=== PATIENT | male | born 1935 | race Caucasian/White ===

== ENCOUNTER 2016-10-30 14:46 | Outpatient (CLI) | payer MEDICARE, BC, OTHER | END 2016-10-30 14:47 | disposition home or self-care (01) | LOC: SC 14:46 | PROVIDERS: ATTEND Nurse Practitioner Family | DX: G47.33 Obstructive sleep apnea (adult) (pediatric) (principal) | CPT/HCPCS: 99213; G0463; 99212 ==

== ENCOUNTER 2017-04-24 08:46 | Outpatient (CLI) | payer MEDICARE, BC, OTHER | END 2017-04-24 08:47 | disposition home or self-care (01) | LOC: LAB.N 08:46 | PROVIDERS: ATTEND Urology | DX: Z12.5 Encounter for screening for malignant neoplasm of prostate (principal); C61 Malignant neoplasm of prostate | CPT/HCPCS: 36415; 84153 ==

== ENCOUNTER 2017-09-20 09:41 | Outpatient (CLI) | payer MEDICARE, BC, OTHER ==
[~2017-09-20 09:41] MED LIST: GADOBUTROL 10 MMOL/10 ML VIAL ONE
[2017-09-20] MEDS: GADOBUTROL 10 MMOL/10 ML VIAL IVP ONE (11:02)
--- NOTE | 2017-09-21 09:44 | MRI Report ---
Procedure Date: 09/20/2017 Accession Number: [id number] / [id number] Procedure: MRI - Brain W/WO CPT Code: FULL RESULT: EXAM: MRI BRAIN AND INTERNAL AUDITORY CANAL (IAC),WITHOUT AND WITH CONTRAST. EXAM DATE: 09/20/2017 09:45 AM. CLINICAL HISTORY: CEREBELLOPONTINE ANGLE TUMOR. COMPARISON: CTA head and neck 03/13/2017. TECHNIQUE: Multiplanar, multisequence T1-weighted and fluid-sensitive MRI sequences of the brain and IACs were performed. Other: None. IV Contrast: 10 cc GADAVIST. FINDINGS: Brain Volume: Normal for age. Parenchyma/Dura: No acute hemorrhage, mass, or acute infarct.Mild bilateral areas of T2/FLAIR signal hyperintensity seen. No abnormal enhancement. Internal Auditory Canals (IACs): Adjacent to the right hypoglossal canal is an avidly enhancing mass lesion measuring 5 x 7 x 6 mm (cc by TRV by AP). The remainder of the right cerebellopontine angles and internal auditory canals appear clear. The left cerebellopontine angle and internal artery canals appear clear. The cisternal course of the seventh and eighth cranial nerves appear normal. The inner ear structure are symmetric and unremarkable. Ventricles/Cisterns: No hydrocephalus. Except as described above cisterns are patent. Orbits: Changes of bilateral lens replacement. Sella Turcica: The pituitary gland, cavernous sinuses, suprasellar cistern and optic chiasm are unremarkable. Vasculature: Normal signal flow void is seen in the major arterial structures at the skull base. The dural sinuses are patent and enhance normally. Sinuses: No acute sinus disease. Bones: No focal pathologic appearing marrow signal changes. Other: None. IMPRESSION: 1. Within the right lateral medullary cistern adjacent to the right hypoglossal canal is an avidly enhancing mass lesion measuring 5 x 7 x 6 mm (cc by TRV by AP). Finding is suspicious for potential schwannoma. Possibility of meningiomas considered less likely but not entirely excluded. Lymphoma or metastatic disease is considered unlikely. 2. No acute infarct, intracranial hemorrhage, additional mass, hydrocephalus, midline shift, or additional areas of abnormal postcontrast enhancement. 3. Mild white matter changes that may represent sequela of chronic small vessel ischemic disease. RADIA
== END 2017-09-20 09:42 | disposition home or self-care (01) ==
LOC: DI 09:41
PROVIDERS: ATTEND Otolaryngology Otology & Neurotology
DX: G93.9 Disorder of brain, unspecified (principal)
CPT/HCPCS: 70553; A9585

== ENCOUNTER 2017-11-14 13:13 | Outpatient (CLI) | payer MEDICARE, BC, OTHER | END 2017-11-14 13:14 | disposition home or self-care (01) | LOC: SC 13:13 | PROVIDERS: ATTEND Nurse Practitioner Family | DX: G47.33 Obstructive sleep apnea (adult) (pediatric) (principal) | CPT/HCPCS: 99214; G0463; 99212 ==

== ENCOUNTER 2018-04-15 15:18 | Outpatient (CLI) | payer MEDICARE, BC, OTHER | END 2018-04-15 15:19 | disposition home or self-care (01) | LOC: SC 15:18 | PROVIDERS: ATTEND Nurse Practitioner Family | DX: G47.33 Obstructive sleep apnea (adult) (pediatric) (principal) | CPT/HCPCS: 99213; G0463; 99212 ==

== ENCOUNTER 2019-04-17 10:28 | Outpatient (CLI) | payer MEDICARE, BC, OTHER ==
[2019-04-17 12:10] VITALS: BP 120/60
--- NOTE | 2019-04-17 12:10 | SLEEP CARE CONSULTATION ---
Information from patient questionnaire entered by Mounika Hilton. I have reviewed and concur with the information entered by Mounika Hilton. This document represents the service I personally performed and the decisions made by me, Zoraida Mcelroy, RN, MSN, TRUCKER. History of Present Illness Previous diagnosis: Very Severe, Obstructive Sleep Apnea-Hypopnea Syndrome AHI: 74.0 Reason for follow up: annual (last seen 2019) Equipment type: CPAP Equipment obtained from: [place] Mask style: Nasal pillows Backup mask available: Yes Last cushion change: 3 weeks ago CPAP Compliance Data - Data Reviewed with Patient Average duration of nightly device use: 7.95 Compliance rate %: 98.9 (180 days) Current pressure setting (cmH2O): 11-15 Humidity settin Heated hose settin Average residual AHI: 2.4 Average large leak: 2 min 51 sec Subjective Missed days of use due to: reports: other (power outage ) Patient concerns: denies: aerophagia, mask discomfort, air blowing in eyes, mask leak noise, condensation in mask/hose, nasal congestion, dry mouth, nose, thr oat, epistaxis Observed to snore while using device: No Current pressure setting perceived as: comfortable On therapy, patient: reports: sleeping better, awakening more refreshed, being more awake and alert during the day, more rested overall. denies: drowsiness while driving Initial [place] Sleepiness Scale score: 5 Current [place] Sleepiness Scale score: 3 Allergies and Home Medications Known drug allergies: No Home medication list reviewed: Yes (no changes since last visit) Allergy and home medication list: Medication Name (generic/name brand) Strength & Dosage Micardis-HCTZ 40-12.5mg tab one daily Lovastatin 40mg tab one daily at bedtime Alfuzosin 10mg tab one daily Metformin 500mg tab one twice daily Multivitamin Tab one daily Fish Oil 1200mg tab one daily Aspirin 81mg tab one daily Review of Systems Review of systems same as previous: Yes Physical Exam Blood Pressure: 120/60 Cuff size: long Heart Rate: 76 O2 Saturation: 96 Height: 5 ft 11 in ( ) Weight: 220 lb 12.8 oz Body Mass Index: 30.8 BMI Classification: Obesity Class 1 Impression and Plan 1. Obstructive Sleep Apnea-Hypopnea Syndrome, very severe , with good treatment compliance and good apnea control. On CPAP therapy, the patient has better sleep quality and is more rested overall. If occasional oral venting increases, patient to call for pressure adjustment. Currently he is comfortable with pressure and no oral dryness. He uses a chinstrap and oral venting only noted occasionally by spouse in supine position so could be during REM sleep. Patient BMI 30 and advised of health risks of obesity and to lose weight. I also discussed how weight affects apnea risks and CPAP pressure requirements. Patient's apnea severity and rationale for treatment to reduce apnea, improve sleep quality and reduce cardiovascular and cerebrovascular events was reviewed. I also reviewed the benefit of consistent device use of CPAP for hypertension, . * Continue CPAP pressure at11-15 cmH2O * Notify me if snoring with mask or feeling that the pressure is too much or too little * Attempt to lose weight * Call this office if any problems using CPAP * Return for follow up in 1 year , or sooner if concerns arise. Time Spent with Patient (minutes): 15 I spent 100% of this visit face to face with the patient with greater than 50% of this was spent time counseling the patient and coordination of care.
== END 2019-04-17 10:29 | disposition home or self-care (01) ==
LOC: SC 10:28
PROVIDERS: ATTEND Nurse Practitioner Family
DX: G47.33 Obstructive sleep apnea (adult) (pediatric) (principal); E66.9 Obesity, unspecified; Z68.30 Body mass index [BMI] 30.0-30.9, adult
CPT/HCPCS: 99213; G0463; 99212

== ENCOUNTER 2020-04-15 12:34 | Outpatient (CLI) | payer MEDICARE, BC, OTHER ==
--- NOTE | 2020-04-15 11:25 | SLEEP CARE CONSULTATION ---
Information from patient questionnaire entered by Mounika Hilton. I have reviewed and concur with the information entered by Mounika Hilton. This document represents the service I personally performed and the decisions made by me, Zoraida Mcelroy, RN, MSN, TWIST TESTER. History of Present Illness Service Date and Time: 04/15/2020 1100 Previous diagnosis: Very Severe, Obstructive Sleep Apnea-Hypopnea Syndrome AHI: 74.0 (in 2006) Reason for follow up: annual (last seen 03/2019) Equipment type: CPAP Equipment obtained from: [place] Mask style: Nasal pillows (with chinstrap) Backup mask available: Yes (old) Last cushion change: a few days Prior sleep studies: Yes Year and Where: 2006 - [facility]; 2000 - [facility] CPAP Compliance Data - Data Reviewed with Patient Average duration of nightly device use: 8 hr 4 min Compliance rate %: 98.9 (180 days) Current pressure setting (cmH2O): 11-15 Humidity settin Heated hose settin Average residual AHI: 2.3 Average large leak: 1 min 19 sec Subjective Patient concerns: reports: other (insomnia a few times due to pandemic). denies: aerophagia (rationale why to report discussed ), mask discomfort, air blowing in eyes, mask leak noise, condensation in mask/hose, nasal congestion, dry mouth, nose, throat, epistaxis Observed to snore while using device: No (however his spouse notices oral noises when supine ) Current pressure setting perceived as: comfortable On therapy, patient: reports: sleeping better (insomnia a few times re pandemic), awakening more refreshed, being more awake and alert during the day, more rested overall. denies: drowsiness while driving Initial [place] Sleepiness Scale score: 5 (in 2013) Current [place] Sleepiness Scale score: 2 Allergies and Home Medications Known drug allergies: No Home medication list reviewed: Yes (stopped Metformin) Review of Systems Review of systems same as previous: Yes Physical Exam Height: 5 ft 11 in ( ) Weight: 202 lb (same) Body Mass Index: 28.1 BMI Classification: Overweight Impression and Plan 1. Obstructive Sleep Apnea-Hypopnea Syndrome, very severe, with excellence treatment compliance and good apnea control. On CPAP therapy, the patient has better sleep quality and is more rested overall. His auto CPAP pressure range will be increased to 13-15 cmH20 to reduce oral noise observed by spouse while he is sleeping supine. He is advised to contact this office if the pressure change is uncomfortable or is it does not resolve oral noises supine. Since patient has more severe apnea in supine position, patient advised to avoid supine sleep with pillow positioning if unable to use CPAP while ill or if without electricity to reduce apnea risk. Patient's apnea severity and rationale for treatment to reduce apnea, improve sleep quality and reduce cardiovascular and cerebrovascular events was reviewed. I also reviewed the benefit of consistent device use of CPAP for hypertension. 2. Insomnia, intermittent, related to pandemic. Patient advised to leave bedroom and write out concerns as a release and then read something relaxing until sleepy enough to go back to bed. Patient advised to follow up with PCP if insomnia becomes worse with rationale discussed. * * Changeauto CPAP pressure to 13-15 cmH2O * Notify me if snoring with mask or feeling that the pressure is too much or too little * Attempt to lose some weight * Avoid CPAP sleep if unable to use PAP * Call this office if any problems using CPAP * Return for follow up in 1 year , or sooner if concerns arise Counseling Topics: Sleeping position Visit Type: Telehealth Phone ([employer]) Patient Location: Home Other Participants: Spouse/Significant Other Location of Provider: Home Patient agrees and consents to this telehealth visit type: Yes Patient agrees to have their insurance billed: Yes Time Spent with Patient (minutes): 19 and 5 minutes documentation after visit. Provider Statement: I spent 100% of the Telehealth Phone Call with the patient with greater than 50% spent counseling the patient and coordination of care.
== END 2020-04-15 12:35 | disposition home or self-care (01) ==
LOC: SC 12:34
PROVIDERS: ATTEND Nurse Practitioner Family
DX: G47.33 Obstructive sleep apnea (adult) (pediatric) (principal); E66.3 Overweight; Z68.28 Body mass index [BMI] 28.0-28.9, adult; G47.00 Insomnia, unspecified

== ENCOUNTER 2021-04-05 11:15 | Outpatient (CLI) | payer MEDICARE, BC, OTHER ==
[2021-04-05 12:11] VITALS: BP 126/85
--- NOTE | 2021-04-05 12:11 | SLEEP CARE CONSULTATION ---
Information from patient questionnaire entered by Osmin Bolivar MA. I have reviewed and concur with the information entered by Osmin Bolivar MA. This document represents the service I personally performed and the decisions made by , Eduarda Tomlinson ARNP. History of Present Illness Service Date and Time: 04/05/2021 1115 Previous diagnosis: Very Severe, Obstructive Sleep Apnea-Hypopnea Syndrome AHI: 74.0 (in 2006) Reason for follow up: annual Equipment type: CPAP Equipment obtained from: [employer] (getting supplies as needed) Mask style: Nasal pillows (with chinstrap) Backup mask available: Yes (old mask) Last cushion change: 10 days ago Prior sleep studies: Yes Year and Where: 2006 - [facility]; 2000 - [facility] additional information: JULIO NGO was diagnosed to have very severe, AHI 74.0, obstructive sleep apnea-hypopnea syndrome and returned today with spouse for CPAP therapy annual follow-up. Sleep Study - Results Prior sleep studies: Yes Year and Where: 2006 - [facility]; 2000 - [facility] CPAP Compliance Data - Data Reviewed with Patient Average duration of nightly device use: 8 HOURS 3 MINUTES Compliance rate %: 99.4 Current pressure setting (cmH2O): 13-15 Humidity settin Heated hose settin Average residual AHI: 3.6 Average large leak: 8 MINUTES 4 SECONDS Subjective Patient concerns: reports: other (headgear gets loose before ready to change). denies: aerophagia, mask discomfort, air blowing in eyes, mask leak noise, condensation in mask/hose, nasal congestion, dry mouth, nose, throat, epistaxis Observed to snore while using device: Yes (snores some if on his back) Current pressure setting perceived as: comfortable On therapy, patient: reports: sleeping better, awakening more refreshed, being more awake and alert during the day, more rested overall. denies: drowsiness while driving Initial [place] Sleepiness Scale score: 5 (in 2012) Current [place] Sleepiness Scale score: 2 (2021) Allergies and Home Medications Known drug allergies: No Drug allergies reviewed: Yes Home medication list reviewed: Yes (stopped Metformin ) Review of Systems Review of systems same as previous: Yes (no changes) Physical Exam Vital signs obtained and entered by: Rolan BOLIVAR CMA AASANTY Blood Pressure: 126/85 (RIGHT) Cuff size: wrist Heart Rate: 62 O2 Saturation: 94 (WITH 2 MASKS) Height: 5 ft 11 in ( ) Weight: 220 lb (WITH CLOTHES) Body Mass Index: 30.7 BMI Classification: Obese Impression and Plan 1. Obstructive Sleep Apnea-Hypopnea Syndrome, very severe, with excellent treatment compliance and good apnea control. On CPAP therapy, the patient has better sleep quality and is more rested overall. Patient's states she hears some sounds especially when he is on his back, possibly snoring. He uses a nasal pillows mask with a chinstrap. No changes needed at this time. Patient states that he has had care will become looser before he is able to get a new one. Otherwise he has no other complaints. He has significant improvement of his sleep apnea. Patient has already registered their device for the recall. Patient denies any black particles seen in machine or hoses, any unusual odors coming from device. Patient has not experienced any physical symptoms such as upper airway irritation, headache, skin or eye irritation, asthma, nausea/vomiting, difficulty breathing or chest pain. If patient is not able to sleep due to waking up choking, gasping for air or other respiratory distress that they may decide to continue using it until it is either replaced or repaired. Patient is continue to use his device and monitoring for any changes. Patient voiced understanding and agreement with plan. Patient's apnea severity and rationale for treatment to reduce apnea, improve sleep quality and reduce cardiovascular and cerebrovascular events was reviewed. I also reviewed the benefit of consistent device use of CPAP for hypertension. Patient was encouraged to lose weight for their overall health and to reduce apneas. Patient states he has not been doing well over the holidays with losing weight but will try now. * Continue auto CPAP pressure at 13-15 cmH2O * Notify me if snoring with mask or feeling that the pressure is too much or too little * Attempt to lose weight * Call this office if any problems using CPAP * Return for follow up in 1 year, or sooner if concerns arise Counseling Topics: Spare mask, Weight loss health impact Visit Type: In Office Other Participants: Spouse/Significant Other Time Spent with Patient (minutes): 20 Provider Statement: I spent 100% of the Face to Face Visit with the patient with greater than 50% spent counseling the patient and coordination of care.
== END 2021-04-05 11:16 | disposition home or self-care (01) ==
LOC: SC 11:15
PROVIDERS: ATTEND Nurse Practitioner Family
DX: G47.33 Obstructive sleep apnea (adult) (pediatric) (principal); E66.9 Obesity, unspecified; Z68.30 Body mass index [BMI] 30.0-30.9, adult
CPT/HCPCS: 99213; G0463; 99212

== ENCOUNTER 2022-05-03 14:59 | Outpatient (CLI) | payer MEDICARE, BC, OTHER ==
[2022-05-03 15:47] VITALS: BP 118/64
--- NOTE | 2022-05-03 15:47 | SLEEP CARE CONSULTATION ---
Information from patient questionnaire entered by Justina Vergara. I have reviewed and concur with the information entered by Justina Vergara. This document represents the service I personally performed and the decisions made by me, Eduarda Tomlinson ARNP. History of Present Illness Service Date and Time: 05/03/2022 1459 Previous diagnosis: Very Severe, Obstructive Sleep Apnea-Hypopnea Syndrome AHI: 74.0 (in 2006) Reason for follow up: annual (LAST SEEN 03/2021) Equipment type: CPAP (AMAYA Dreamstation 2) Equipment obtained from: [employer] (getting supplies as needed) Mask style: Nasal pillows (with chinstrap) Backup mask available: Yes (old mask) Last cushion change: 1 week Prior sleep studies: Yes Year and Where: 2006 - [facility]; 2000 - [facility] additional information: JULIO NGO was diagnosed to have very severe, AHI 74.0, obstructive sleep apnea-hypopnea syndrome and returned today with spouse for CPAP therapy annual follow-up. Sleep Study - Results Prior sleep studies: Yes Year and Where: 2006 - [facility]; 2000 - [facility] CPAP Compliance Data - Data Reviewed with Patient Average duration of nightly device use: 7 HRS 45 MIN 14SEC Compliance rate %: 98.3 (11/03/21-05/01/22; 180/180 days used) Current pressure setting (cmH2O): 13-15 Average residual AHI: 3 Central apnea: 0.7 Obstructive apnea: 1.4 Average large leak: 0 Subjective Observed to snore while using device: Yes (only when falling asleep initally; not after he is asleep) Current pressure setting perceived as: comfortable On therapy, patient: reports: sleeping better, awakening more refreshed, being more awake and alert during the day, more rested overall. denies: drowsiness while driving Initial [place] Sleepiness Scale score: 5 (in 2012) Current [place] Sleepiness Scale score: 1 (05/03/22) Allergies and Home Medications Drug allergies reviewed: Yes (NKDA) Home medication list reviewed: Yes (no changes) Review of Systems Review of systems same as previous: Yes (no changes) Physical Exam Vital signs obtained and entered by: JUSTINA Guzman MA Blood Pressure: 118/64 (LEFT ARM) Cuff size: regular Heart Rate: 92 O2 Saturation: 96 Height: 5 ft 11 in ( ) Weight: 219 lb 9.6 oz Body Mass Index: 30.6 BMI Classification: Obese Impression and Plan 1. Obstructive Sleep Apnea-Hypopnea Syndrome, very severe, with good treatment compliance and good apnea control. On CPAP therapy, the patient has better sleep quality and is more rested overall. Patient has significant improvement of their sleep apnea and are satisfied with current CPAP therapy. Patient denies problems with oral dryness, nasal congestion, epistaxis, skin irritation or aerophagia. Patient's apnea severity and rationale for treatment to reduce apnea, improve sleep quality and reduce cardiovascular and cerebrovascular events was reviewed. I also reviewed the benefit of consistent device use of CPAP for hypertension. 2. Obesity, unspecified. Currently patients BMI is 30.6. Obesity increases the risk of apnea, CPAP pressure requirements and overall health risks especially cardiovascular and diabetes. Thus patient is advised to lose weight. * Continue auto CPAP pressure at 13-15 cmH2O * Update supplies * Notify me if snoring with mask or feeling that the pressure is too much or too little * Attempt to lose weight * Call this office if any problems using CPAP * Return for follow up in 1 year, or sooner if concerns arise Counseling Topics: Spare mask, Weight loss health impact Visit Type: In Office Other Participants: Spouse/Significant Other Time Spent with Patient (minutes): 20 Provider Statement: I spent 100% of the Face to Face Visit with the patient with greater than 50% spent counseling the patient and coordination of care.
== END 2022-05-03 15:00 | disposition home or self-care (01) ==
LOC: SC 14:59
PROVIDERS: ATTEND Nurse Practitioner Family
DX: G47.33 Obstructive sleep apnea (adult) (pediatric) (principal); E66.9 Obesity, unspecified; Z68.30 Body mass index [BMI] 30.0-30.9, adult
CPT/HCPCS: 99213; G0463; 99212

== ENCOUNTER 2023-05-04 09:53 | Outpatient (CLI) | payer MEDICARE, BC, OTHER ==
--- NOTE | 2023-05-04 10:45 | Sleep Patient Instructions ---
Sleep Center Visit Summary - Patient Visit Information Reason for Visit: Annual visit - Patient Instructions Additional Instructions: You will continue with CPAP therapy with pressure set at 13-15 cmH2O. A supply prescription will be updated with your DME. I have added a mask refitting for the F&P Brevida nasal pillows mask. We encourage you to continue to try to lose weight. Please follow up with the sleep care office in 1 year. - Clinic Information Contact: [facility] [address] [place] [address] [email or web address] T: [phone]
--- NOTE | 2023-05-04 10:48 | SLEEP CARE CONSULTATION ---
Information from patient questionnaire entered by Marlin Vergara. I have reviewed and concur with the information entered by Marlin Vergara. This document represents the service I personally performed and the decisions made by me, Eduarda Tomlinson ARNP. History of Present Illness Service Date and Time: 05/04/2023 0953 Previous diagnosis: Very Severe, Obstructive Sleep Apnea-Hypopnea Syndrome AHI: 74.0 (in 2006) Reason for follow up: annual (LAST SEEN 04/2022) Accompanied by: Spouse (Shana) Equipment type: CPAP (AMAYA Dreamstation 2; s/u 02/12/2018) Equipment obtained from: [employer] (getting supplies as needed) Mask style: Nasal pillows (with chinstrap) Backup mask available: Yes Last cushion change: every two weeks; 2 weeks ago Prior sleep studies: Yes Year and Where: 2006 - [facility]; 2000 - [facility] additional information: JULIO NGO was diagnosed to have very severe, AHI 74, obstructive sleep apnea- hypopnea syndrome and returned today with spouse for CPAP therapy annual follow- up. Sleep Study - Results Prior sleep studies: Yes Year and Where: 2006 - [facility]; 2000 - [facility] CPAP Compliance Data - Data Reviewed with Patient Average duration of nightly device use: 8 HRS 3 MINS 57 SEC Compliance rate %: 100 (05/01/22-04/30/23; 365/365 days used) Current pressure setting (cmH2O): 13-15 Average residual AHI: 4.3 Central apnea: 0.7 Obstructive apnea: 2.3 Hypopnea: 1.3 Average large leak: 3 secs Subjective Patient concerns: reports: other (some mask leakage when tossing/turning). denies: aerophagia, mask discomfort, air blowing in eyes, mask leak noise, condensation in mask/hose, nasal congestion, dry mouth, nose, throat, epistaxis Observed to snore while using device: No Current pressure setting perceived as: comfortable On therapy, patient: reports: sleeping better, awakening more refreshed, being more awake and alert during the day, more rested overall. denies: drowsiness while driving Initial [place] Sleepiness Scale score: 5 (in 2012) Current [place] Sleepiness Scale score: 2 Allergies and Home Medications Known drug allergies: No Drug allergies reviewed: Yes Home medication list reviewed: Yes (no changes) Allergy and home medication list: Allergies No Known Drug Allergies Allergy (Verified 05/03/22 15:25) Review of Systems Review of systems same as previous: Yes (NO CAHNGE) Physical Exam Vital signs obtained and entered by: MARLIN Guzman MA Blood Pressure: 119/75 (LEFT ARM) Cuff size: regular Heart Rate: 85 O2 Saturation: 97 Height: 5 ft 11 in ( ) Weight: 217 lb Body Mass Index: 30.2 BMI Classification: Obese Impression and Plan 1. Obstructive Sleep Apnea-Hypopnea Syndrome, very severe, with good treatment compliance and good apnea control. On CPAP therapy, the patient has better sleep quality and is more rested overall. Patient has significant improvement of their sleep apnea and is satisfied with current CPAP therapy. He states he gets a little dry mouth occasionally but this has not been problematic. He would like to try a mask he saw in our front lobby, the [employer] Brevida nasal pillows mask. He thinks this might seal better for him when he is tossing and turning during the night. I will add this to his updated supply prescription. Patient's apnea severity and rationale for treatment to reduce apnea, improve sleep quality and reduce cardiovascular and cerebrovascular events was reviewed. I also reviewed the benefit of consistent device use of CPAP for hypertension. 2. Obesity, unspecified. Currently patients BMI is 30.2. Obesity increases the risk of apnea, CPAP pressure requirements and overall health risks especially cardiovascular and diabetes. Thus patient is advised to lose weight. * Continue auto CPAP pressure at 13-15 cmH2O * Mask refitting for F&P Brevida nasal pillows mask * Update supply prescription * Notify me if snoring with mask or feeling that the pressure is too much or too little * Attempt to lose weight * Call this office if any problems using CPAP * Return for follow up in 12 months, or sooner if concerns arise Counseling Topics: Spare mask, Weight loss health impact Prescriptions: Device supplies Follow up with Sleep Care in: 1 year Visit Type: In Office Time Spent with Patient (minutes): 21 Provider Statement: I spent 100% of the Face to Face Visit with the patient with greater than 50% spent counseling the patient and coordination of care.
[2023-05-04 10:51] VITALS: BP 119/75; O2SAT 97
== END 2023-05-04 09:54 | disposition home or self-care (01) ==
LOC: SC 09:53
PROVIDERS: ATTEND Nurse Practitioner Family
DX: G47.33 Obstructive sleep apnea (adult) (pediatric) (principal); E66.9 Obesity, unspecified; Z68.30 Body mass index [BMI] 30.0-30.9, adult
CPT/HCPCS: 99213; G0463; 99212